=== PATIENT | male | born 1950 | race Caucasian/White ===

== ENCOUNTER → 2020-12-23 13:13 | Outpatient (REF) | payer MEDICARE, OTHER, SELFPAY | LOC: ANHLAB 13:13 | PROVIDERS: PCP Family Medicine Sports Medicine; Visit Provider Nurse Practitioner | DX: D22.5 Melanocytic nevi of trunk (principal) | CPT/HCPCS: 88305 ==

== ENCOUNTER 2023-07-06 10:25 | Outpatient (CLI) | payer MEDICARE, OTHER, SELFPAY ==
--- NOTE | 2023-07-06 11:30 | NEURO_ITS ---
Impression: # Non-diabetic complains of numbness of hands. 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 # Needle/EMG exam mildly neurogenic in left APB. # Ulnar to median cross innervation noted. # Clinical correlation recommended, Nerve Conduction Studies Anti Sensory Summary Table Stim Site NR Peak (ms) P-T Amp (?V) Site1 Site2 Delta-P (ms) Dist (cm) Travis (m/s) Left Median Anti Sensory (2-3nd Digit) Wrist 3.5 18.5 Wrist 2-3nd Digit 3.5 14.0 40 Wrist 3.8 23.9 Wrist 2-3nd Digit 3.5 14.0 40 Right Median Anti Sensory (2-3nd Digit) Wrist 4.0 16.1 Wrist 2-3nd Digit 4.0 14.0 35 Wrist 3.9 16.0 Wrist 2-3nd Digit 4.0 14.0 35 Left Radial Anti Sensory (Base 1st Digit) Wrist 2.3 16.4 Wrist Base 1st Digit 2.3 0.0 Right Radial Anti Sensory (Base 1st Digit) Wrist 2.3 4.6 Wrist Base 1st Digit 2.3 0.0 Left Ulnar Anti Sensory (5th Digit) Wrist 3.1 14.3 Wrist 5th Digit 3.1 14.0 45 Right Ulnar Anti Sensory (5th Digit) Wrist 3.0 16.2 Wrist 5th Digit 3.0 14.0 47 Motor Summary Table Stim Site NR Onset (ms) O-P Amp (mV) Site1 Site2 Delta-0 (ms) Dist (cm) Travis (m/s) Left Median Motor (Abd Poll Brev) Wrist 4.2 1.0 Elbow Wrist 7.7 33.0 43 Elbow 11.9 0.3 Right Median Motor (Abd Poll Brev) Wrist 3.8 1.7 Elbow Wrist 5.5 31.0 56 Elbow 9.3 2.9 Left Ulnar Motor (Abd Dig Minimi) Wrist 3.4 6.2 A Elbow Wrist 5.9 30.0 51 A Elbow 9.3 4.9 Right Ulnar Motor (Abd Dig Minimi) Wrist 3.5 4.0 A Elbow Wrist 5.9 32.0 54 A Elbow 9.4 2.5 F Wave Studies NR F-Lat (ms) L-R F-Lat (ms) Left Median (Mrkrs) (Abd Poll Brev) 35.20 1.17 Right Median (Mrkrs) (Abd Poll Brev) 36.37 1.17 Left Ulnar (Mrkrs) (Abd Dig Min) 34.27 2.05 Right Ulnar (Mrkrs) (Abd Dig Min) 36.32 2.05 EMG Side Muscle Nerve Root Ins Act Fibs Amp Dur Recrt Comment Right 1stDorInt Ulnar C8-T1 Nml Nml Nml Nml Nml Right Ext Indicis Radial (Post Int) C7-8 Nml Nml Nml Nml Nml Right Ext Digitorum Radial (Post Int) C7-8 Nml Nml Nml Nml Nml Right BrachioRad Radial C5-6 Nml Nml Nml Nml Nml Right PronatorTeres Median C6-7 Nml Nml Nml Nml Nml Right Abd Poll Brev Median C8-T1 Nml Nml Nml Nml Nml Left 1stDorInt Ulnar C8-T1 Nml Nml Nml Nml Nml Left Ext Indicis Radial (Post Int) C7-8 Nml Nml Nml Nml Nml Left Ext Digitorum Radial (Post Int) C7-8 Nml Nml Nml Nml Nml Left BrachioRad Radial C5-6 Nml Nml Nml Nml Nml Left PronatorTeres Median C6-7 Nml Nml Nml Nml Nml Left Abd Poll Brev Median C8-T1 Nml Nml Nml >12msl Reduces Right ABD Dig Min Ulnar C8-T1 Nml Nml Nml Nml Nml Right Biceps Musculocut C5-6 Nml Nml Nml Nml Nml Right Triceps Radial C6-7-8 Nml Nml Nml Nml Nml Right Deltoid Axillary C5-6 Nml Nml Nml Nml Nml Left ABD Dig Min Ulnar C8-T1 Nml Nml Nml Nml Nml Left Biceps Musculocut C5-6 Nml Nml Nml Nml Nml Left Triceps Radial C6-7-8 Nml Nml Nml Nml Nml Left Deltoid Axillary C5-6 Nml Nml Nml Nml Nml MTDD
== END 2023-07-06 10:26 | disposition home or self-care (01) ==
LOC: ANHNEURO 10:26
PROVIDERS: PCP Family Medicine Sports Medicine; Visit Provider Orthopaedic Surgery
DX: G62.9 Polyneuropathy, unspecified (principal)
CPT/HCPCS: 95886; 95911

== ENCOUNTER 2023-10-07 10:23 | Inpatient (IN) | payer MEDICARE, OTHER, SELFPAY ==
[2023-10-07] VITALS (25 sets, daily range): BP systolic 78–166; BP diastolic 33–87; PULSE 88–114; RESP 16–38; TEMP 36.3–36.7; O2SAT 91–100; BMI 33.3
--- NOTE | ~2023-10-07 | XR_ITS ---
EXAMINATION: XR chest 1V portable DATE: 10/07/2023 18:21 INDICATION: Shortness of breath. COVID-19. TECHNIQUE: A single frontal view of the chest was obtained. COMPARISON: Chest CT 10/07/2023 FINDINGS: There is no pneumonia, pleural effusion, or pneumothorax. The heart size is normal. IMPRESSION: 1. No acute cardiopulmonary disease. Reviewed, dictated and finalized at location E. RINARY ASSISTANT TECHNICIAN
--- NOTE | ~2023-10-07 | CT_ITS ---
EXAMINATION: CTA chest PE protocol DATE: 10/07/2023 12:11 HAND CLOTH CUTTER INDICATION: Shortness of breath. Evaluate for pulmonary embolism. TECHNIQUE: Computed tomographic angiography (CTA) of the chest was performed with 100 mL Omnipaque-35 0 intravenous contrast. The dose-length product was 979.15 mGy-cm. Maximum intensity projection 3D-re constructions of the aorta and other arteries were constructed by the technologist on a separate work station. Automated exposure control and iterative reconstruction technique were employed. COMPARISON: None. FINDINGS: Study is technically adequate without evidence for pulmonary embolism. There is atheroscler osis of the aorta and coronary arteries. There is a right hilar mass measuring 2.5 cm, suspicious for bronchogenic carcinoma. There is mediastinal and bilateral hilar lymphadenopathy. Small pleural effu sions. No endobronchial lesions. There is dependent atelectasis. There is lingular atelectasis. There is atherosclerosis of the aorta without aneurysm or dissection. Small pericardial effusion. Mild tho racic spondylosis. IMPRESSION: 1. No evidence for pulmonary embolism. 2: Right hilar mass measuring 2.5 cm, suspicious for bronchogenic carcinoma. Mediastinal and bilatera l hilar lymphadenopathy. Consider further evaluation with bronchoscopy. 3: Small pleural effusions with underlying compressive atelectasis Reviewed, dictated and finalized at location B. CLOTH CUTTER IMPRESSION: 1. No evidence for pulmonary embolism. 2: Right hilar mass measuring 2.5 cm, suspicious for bronchogenic carcinoma. Me diastinal and bilateral hilar lymphadenopathy. Consider further evaluation with bronchoscopy. 3: Small pleural effusions with underlying compressive atelectasis
--- NOTE | 2023-10-07 10:36 | ED.SOB ---
HPI - SOB/Dyspnea General Chief Complaint: Shortness of Breath/Dyspnea Stated Complaint: dyspnea, covid+ Time Seen by Provider: 10/07/23 10:26 Patient is a 73-year-old male who is known to be COVID positive that presents ER with shortness of breath. He began feeling ill 10 days ago. One week ago he tested positive for COVID. He took packs of it without feeling improvement. He continues to feel progressively more weak. He went to an ER in [facility] where he was given Keflex for possible UTI. He feels like he is being continuing to become more fatigued and weak. He has no chest pain chest pressure. Found to be in atrial fibrillation today and denies history of previous AFib. Reports he does have a valve issue that he follows with a epic prelude analyst at [facility] to but does not know more information. Patient initially hypotensive and fluids started. Related Data Home Medications Medication Instructions Recorded Confirmed celecoxib 200 mg capsule 200 mg PO DAILY 10/07/23 10/07/23 duloxetine 60 mg capsule,delayed 60 mg PO DAILY 10/07/23 10/07/23 release (Cymbalta) losartan 100 mg tablet 100 mg PO DAILY 10/07/23 10/07/23 nifedipine 30 mg tablet,extended 30 mg PO QAM 10/07/23 10/07/23 release nifedipine 60 mg tablet,extended 60 mg PO QHS 10/07/23 10/07/23 release omeprazole 40 mg capsule,delayed 40 mg BID 10/07/23 10/07/23 release rosuvastatin 5 mg tablet 5 mg PO DAILY 10/07/23 10/07/23 Allergies Allergy/AdvReac Type Severity Reaction Status Date / Time indomethacin Allergy Gastrointestinal Verified 10/07/23 10:39 Upset Review of Systems Review of Systems: All systems reviewed & are unremarkable except as noted in HPI and below Constitutional: Constitutional: Reports fatigue and Reports weakness Cardiovascular: Cardiovascular: Denies chest pain, Denies rapid heart rate and Denies radiating jaw, neck or arm pain Respiratory: Respiratory: Reports cough, Reports dyspnea and Denies wheezing Gastrointestinal: Gastrointestinal: Reports no additional gastrointestinal complaints Genitourinary: Genitourinary: Reports no additional male genitourinary complaints Neurologic: Reports system reviewed and no additional complaints, except as documented [facility] Past Medical History Medical History (Updated 10/07/23 @ 19:30 by Silviano Finney MD) Hyperlipidemia Hypertension Obesity Obstructive sleep apnea Prediabetes Prostate cancer Surgical History Surgical History History of appendectomy History of hernia repair History of prostate surgery History of tonsillectomy and adenoidectomy Family History Family History Other Diabetes mellitus Family history of kidney disease Social History Social History (Updated 10/07/23 @ 14:46 by Winsome Jarrell PA-C) Social History: Surrogate medical decision maker: Binta Molina (spouse) or Estella (daughter) Michele. Code status: Full code. Smoking status: Never smoker Second hand tobacco smoke exposure: Yes (father and brother smoked.) Alcohol intake: former Substance use: never Substance use type: does not use Do You Feel Safe in your Home?: Yes Lack of Transportation: No Lack of Food: Never True Current Housing: I Have Housing Concerned About Future Housing: YES Difficulty Paying Gas/Electric Bills: No Difficulty Paying for Meds: No Currently Unemployed: No Education: High School Diploma/GED Difficulty w/ Childcare or Family Care: No Living arrangements: with family Additional living arrangements comments: Lives with spouse in [place]. Occupation/Education: occupation Additional occupation/education comments: [employer]. Spiritual care concerns: No Exam Narrative: GENERAL: Fatigued-appearing, obese, and in no acute distress. HEAD: Normocephalic, atraumatic. ENT: Mucous
[2023-10-07] MEDS: SODIUM CHLORIDE 0.9% IV 1,000 ML 999 ML (10:57)
[2023-10-07 11:23] LABS: Basophils Percent Auto 0.3 % (0.2-1.2); Eosinophils Absolute Auto 0.1 K/mm3 (0-0.3); Eosinophils Percent Auto 0.5 % (0-4.4); Hemoglobin 11.9 g/dL (14.0-18.0); Immature Granulocyte Absolute 0.03 K/mm3 (0.00-0.031); Immature Granulocyte Percent A 0.3 % (0-0.5); Lymphocytes Absolute Auto 2.51 K/mm3 (0.9-3.2); Lymphocytes Percent Auto 23.5 % (18.3-44.2); Mean Corpuscular HGB Conc 33.1 g/dl (32-36); Mean Corpuscular Hemoglobin 29.9 pg (26-34); Mean Corpuscular Volume 90.5 fl (80-100); Mean Platelet Volume 11.3 fl (7.4-10.4); Monocytes Absolute Auto 1.1 K/mm3 (0.1-0.6); Monocytes Percent Auto 10.2 % (2.6-8.5); Neutrophils Percent Auto 65.2 % (45.5-73.1); Platelet Count Result 216 k/mm3 (150-375); Red Blood Count 3.98 M/mm3 (4.6-6.20); White Blood Count 10.7 K/mm3 (4.5-10.0)
[2023-10-07 11:34] LABS: Partial Thromboplastin Time 25.7 SECONDS (22.3-36.8); Prothrombin Time 13.7 Seconds (11.1-14.7)
[2023-10-07 11:35] LABS: Alanine Aminotransferase 17 U/L (6-50); Albumin Level 3.1 g/dL (3.5-5.1); Alkaline Phosphatase 49 U/L (38-126); Anion Gap 10 mmol/L (8-16); Aspartate Amino Transferase 24 U/L (17-59); Bilirubin,Total 0.5 mg/dL (0.2-1.3); Blood Urea Nitrogen 42 mg/dL (9-20); Calcium 8.1 mg/dL (8.4-10.2); Carbon Dioxide 18 mmol/L (22-30); Chloride 107 mmol/L (98-107); Estimated Glomerular Filt Rate > 60; Glucose 130 mg/dL (65-110); Potassium 3.6 mmol/L (3.4-5.0); Sodium 135 mmol/L (137-145)
[2023-10-07] MEDS: SODIUM CHLORIDE 0.9% IV 1,000 ML 999 ML IV CONT (11:35)
[2023-10-07 11:36] LABS: Lactic Acid Reflex 2.9 mmol/L (0.7-2.0)
[2023-10-07 11:47] LABS: Troponin I 0.012 ng/mL (0.000-0.034)
[2023-10-07 12:43] LABS: Appearance Urine Clear (Clear); Bilirubin Urine Negative (Negative); Blood Urine Negative (Negative); Color Urine Yellow (Yellow); Glucose Urine UA Negative (Negative); Ketones Urine Negative (Negative); Leukocyte Esterase Ur Negative LEU/UL (Negative); Nitrate Urine Negative (Negative); Protein Urine Negative (Negative); pH Urine 6.5 (5.0-9.0)
[2023-10-07 12:46] LABS: Specific Grav Ur 1.069 (1.001-1.035)
[2023-10-07 12:47] LABS: Add Urine Microscopic? NO
[2023-10-07 14:21] LABS: Reflex Lactic Acid Yes or No Add Lactic
--- NOTE | 2023-10-07 14:33 | PM.IMHP ---
H&P: HPI History of Present Illness Date/Time: 10/07/23 15:00 Chief Complaint: Shortness of breath and weakness. Narrative: This is a 73-year-old male with obstructive sleep apnea on CPAP, hypertension, hyperlipidemia, prediabetes, kidney stones, prostate cancer status post prostatectomy, gastroesophageal reflux disease, and pulmonary nodule presented to the emergency department for evaluation of shortness of breath and weakness. The patient provides the following history. He has not been feeling well since last and tested positive for COVID the following day. He was at a several days before that and was likely exposed there. He was started on Paxlovid but is not feeling any better. Symptoms include sneezing, rhinorrhea, nonproductive cough, sinus congestion, shortness of breath, headache, sore throat, decreased appetite, and subjective fever. He has been taking Mucinex at home for his cough though that does not seem to help much. The cough is not productive. His appetite has been poor and he reports a decrease in urine output as well as dark-colored urine. He denies syncope, near syncope, chest pain, pleuritic pain, palpitations, vomiting, diarrhea, and dysuria. In the ED: Blood pressure was as low as 78/55. He received a 2 L normal saline bolus and blood pressures have since stabilized. He has been afebrile since arrival. Heart rate has been in the upper 90s to low 100s and he is in atrial fibrillation which is a new diagnosis for him. Labs were significant for WBC count of 10.7, hemoglobin 11.9, sodium 135, BUN 42, creatinine 1.00, lactic acid 2.9, troponin 0.012. Urine showed high specific gravity but was otherwise unremarkable. He was confirmed positive for SARS-CoV-2 by PCR. Chest x-ray showed no acute cardiopulmonary disease. Chest CTA showed no evidence of pulmonary embolism but did note small pleural effusions and a right hilar mass measuring 2.5 cm with mediastinal bilateral hilar lymphadenopathy. With further questioning he had a pulmonary nodule which was being followed many years ago which had always been stable. Review of Systems Review of Systems: Twelve systems were reviewed and are negative except for as per HPI. [facility] Past Medical History Medical History (Updated 10/07/23 @ 21:57 by Winsome Jarrell PA-C) Hyperlipidemia Hypertension Obesity Obstructive sleep apnea Prediabetes Prostate cancer Surgical History Surgical History (Updated 10/07/23 @ 21:54 by Winsome Jarrell PA-C) History of appendectomy History of hernia repair History of prostatectomy History of tonsillectomy and adenoidectomy Family History Family History Other Diabetes mellitus Family history of kidney disease Social History Social History Social History: Surrogate medical decision maker: Binta Molina (spouse) or Estella (daughter) Michele. Code status: Full code. Smoking status: Never smoker Second hand tobacco smoke exposure: Yes (father and brother smoked.) Alcohol intake: former Substance use: never Substance use type: does not use Do You Feel Safe in your Home?: Yes Lack of Transportation: No Lack of Food: Never True Current Housing: I Have Housing Concerned About Future Housing: YES Difficulty Paying Gas/Electric Bills: No Difficulty Paying for Meds: No Currently Unemployed: No Education: High School Diploma/GED Difficulty w/ Childcare or Family Care: No Living arrangements: with family Additional living arrangements comments: Lives with spouse in [place]. Occupation/Education: occupation Additional occupation/education comments: [employer]. Spiritual care concerns: No Meds Home Medications and Allergies Home Medications Medication Instructions Recorded Confirmed Type celecoxib 200 mg capsule 200 mg PO DAILY 10/07/23 10/07/23 History duloxetine
[2023-10-07] MEDS: ENOXAPARIN 120 MG/0.8 ML SYRINGE 122 MG SUB-Q (14:45)
--- NOTE | 2023-10-07 14:59 | ECG_ITS ---
Measurements Intervals Wilber Rate: 104 P: MI: 0 QRS: 14 QRSD: 78 T: 214 QT: 346 QTc: 457 Interpretive Statements ATRIAL FIBRILLATION WITH RAPID VENTRICULAR RESPONSE LOW QRS VOLTAGE- DIFFUSE LEADS CONSIDER ANTERIOR INFARCT, AGE INDETERMINATE BORDERLINE ST-T WAVE ABNORMALITY- INF/HIGH LAT LEADS BASELINE ARTIFACT- I, II, AVR, AVL, AVF, V1-V6 ABNORMAL ECG NO PREVIOUS ECG AVAILABLE FOR COMPARISON Electronically Signed On 10-07-2023 15:24:19 ROTARY DRYER OPERATOR by Pritesh Euceda D.O.
--- NOTE | 2023-10-07 15:24 | ADMIMU ---
This patient, Reyes Bautista, was admitted to IMU status, and placed in IMU Room 212-01. Patient/family oriented to hospital policies and general routines including ID bracelet, bed and alarms, visiting hours, pain management, procedures, bathroom and other care routines, personal items, smoking policy, room service/diet, and visiting hours. Valuables list has been completed. Information on how to activate the Rapid Response Team has been discussed. Patient/Family are encouraged to report perceived risks to care and to ask questions if they do not understand what they are told or what they should do.
[2023-10-07 15:38] LABS: Influenza A QL RT-PCR Negative (Negative); Influenza B QL RT-PCR Negative (Negative); RSV RNA, RT-PCR Negative (Negative); SARS-CoV-2 RNA PCR Positive (Negative)
--- NOTE | 2023-10-07 15:42 | ECHO_ITS ---
Patient Info Name: Reyes Bautista Age: 73 years : 1950 Gender: Male Ht: 76 in Wt: 281 lbs BSA: 2.65 m2 HR: 108 bpm BP: 106 / 46 mmHg Heart Rhythm: Atrial Fibrillation Technical Quality: Fair Exam Date: 10/07/2023 4:12 PM Exam Location: Echo Lab Exam Room: [facility] Patient Status: Outpatient Admit Date: 10/07/2023 Staff Ordering Physician: Winsome Jarrell PA-C Courier: Nilsa Abebe RDCS Attending Provider: Ray Torre MD Referring Physician: Wesly RODRIGUES; Exam Type: CA echo doppler color flow Study Info Indications - new afib covid pos Complete two-dimensional, color flow and Doppler transthoracic echocardiogram is performed. Summary 1. Complete two-dimensional, color flow and Doppler transthoracic echocardiogram is performed. 2. Left ventricular chamber dimension is normal. 3. Left ventricular systolic function is normal, estimated at 65-70%. 4. The left ventricular diastolic function is normal. 5. E/e' 9 is minimally elevated. 6. Atrial fibrillation. 7. Left atrial chamber dimension is mildly enlarged. 8. Right atrial chamber dimension is mildly enlarged. 9. There is moderate aortic valve sclerosis. 10. The mitral valve has mildly calcified annulus. 11. No pulmonary hypertension, estimated pulmonary arterial systolic pressure is 38 mmHg. 12. There is trivial pericardial effusion. Left Ventricle E/e' 9 is minimally elevated. Atrial fibrillation. Left ventricular chamber dimension is normal. Left ventricular systolic function is normal, estimated at 65-70%. The left ventricular diastolic function is normal. Right Ventricle Right ventricular chamber dimension is normal. Right ventricular systolic function is normal. Left Atria Left atrial chamber dimension is mildly enlarged. Right Atria Right atrial chamber dimension is mildly enlarged. Aortic Valve The aortic valve is trileaflet. There is moderate aortic valve sclerosis. There is no aortic valve stenosis. There is no aortic valve regurgitation. Pulmonic Valve There is no pulmonic regurgitation. Mitral Valve The mitral valve has mildly calcified annulus. There is no mitral valve stenosis. There is no mitral valve regurgitation. Tricuspid Valve There is no tricuspid valve regurgitation. No pulmonary hypertension, estimated pulmonary arterial systolic pressure is 38 mmHg. Pericardium/Pleural There is trivial pericardial effusion. Inferior Vena Cava Normal inferior vena cava with >50% collapse upon inspiration consistent with normal right atrial pressure, 5 mmHg. Aorta The aortic root size at the sinus of Valsalva is normal. Left Ventricular Outflow Tract Name Value Normal LVOT 2D LVOT Diameter 2.1 cm LVOT Doppler LVOT Peak Gradient 4 mmHg LVOT Mean Gradient 3 mmHg LVOT VTI 20 cm LVOT VTI/AV VTI Ratio 0.6 LVOT Stroke Volume 67 ml LVOT CO 17.4 l/min LVOT CI 6.6 l/min/m2 Pulmonic Valve Name
--- NOTE | 2023-10-07 16:43 | PM.CNPUL ---
Assessment and Plan Assessment and plan (1) Mass of right lung: Code(s): R91.8 - Other nonspecific abnormal finding of lung field Status: Acute Assessment and Plan: Patient with the 2.5 cm right hilar mass and bilateral hilar and mediastinal lymphadenopathy. This is in the setting of an acute COVID infection. He is a never smoker was exposed to secondhand smoke from his father. Plan: Patient should be treated for acute COVID and after he was made a complete recovery (anticipated 1-3 weeks) will repeat CT scan to reassess mass and lymphadenopathy to determine the best approach for a biopsy (standard bronchoscopy or referral for a bronchoscopy with EBUS). If the patient is clinically ready to be discharged over the weekend, I have given him our business card and told him to call clinic on 10/10 to make an outpatient appointment in 2-3 weeks. Will follow with you. Inpatient Pulmonary consultative services will resume on 10/10/2023. Call with questions. (2) ROSAURA (obstructive sleep apnea): Code(s): G47.33 - Obstructive sleep apnea (adult) (pediatric) Status: Acute Assessment and Plan: The patient tells me he was diagnosed with obstructive sleep apnea 15-20 years ago and he wears a CPAP 15 every night with a good clinical benefit. Plan: I have told the patient to have his family bring in his CPAP mask and machine. If he can bring in his CPAP mask and machine tonight he should wear her his own apparatus. Otherwise I will write for auto Pap 10 to 20. (3) COVID: Code(s): U07.1 - COVID-19 Status: Acute Assessment and Plan: Patient tested COVID positive on 09/30 and repeat testing today in the emergency room is COVID positive. Room air saturations were listed as 91 in the emergency room and currently he is in no respiratory distress at rest on 2 L with saturations 100%. CT scan does not show diffuse ground-glass or focal infiltrates. He was started on remdesivir. Plan: Agree with remdesivir only for now. Would attempt to wean FiO2 to off with a goal saturation 90-94%. If patient's oxygen can be weaned off recommend discontinuation of remdesivir. If patient has worsening oxygen requirements would add dexamethasone 6 mg IV Qday. History of Present Illness History of Present Illness Consult date: 10/07/23 Chief complaint: Afib, COVID, Hilar Mass Narrative: 10/07/2023: This is a new pulmonary consult for right hilar mass. 73-year-old with a history of hypertension, hyperlipidemia, depression, GERD, obstructive sleep apnea on CPAP 15 through IV respiratory care for 15-20 years. Patient was in his usual state of health and at baseline he can walk at least 3 blocks and then notice E has to breathe harder. Over the last year his dyspnea on exertion has worsened from 1/4 mi to 3 blocks. He has no weight loss over this time. Patient has no chronic respiratory illnesses. He denies asthma, COPD oral interstitial lung disease. He is a never smoker. He was exposed to secondhand smoke from his father but none since he moved out of his father's house. 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 Patient began feeling sick on 09/30/2023 with sneezing, cough, shortness of breath, fever, minimal phlegm production and a little bit of chest pain when he took a deep breath. Patient tested positive for COVID at his physician's office and was prescribed Paxil of id. Over the next 5 days he did not improve with Paxil of id and on 10/05/2023 he became weaker and went to the ER at [facility] where he says they gave him some IV fluids but did no diagnostic testing and sent him home. He continued to feel weak and was unable to eat or drink and presented to the hospital today. In the emergency room his room air saturations were 91% and he was placed on 2 L nasal cannula. He was afebrile with a heart rate
[2023-10-07] MEDS: REMDESIVIR 200 MG/NS 250 ML 200 MG/250 ML BAG 250 MG IVPB (16:45)
[2023-10-07] MEDS: guaiFENesin 600 MG/DEXTROMETHORPHAN 30 MG SR TAB 12 HR 1 TAB PO (22:42)
[2023-10-07] MEDS: PANTOPRAZOLE 40 MG TABLET PO (22:42)
[2023-10-08] VITALS (16 sets, daily range): BP systolic 102–137; BP diastolic 59–66; PULSE 89–114; RESP 16–24; TEMP 36.6–36.8; O2SAT 93–100
[2023-10-08 04:55] LABS: Hematocrit 35.5 % (42.0-52.0); Hemoglobin 11.9 g/dL (14.0-18.0); Mean Corpuscular HGB Conc 33.5 g/dl (32-36); Mean Corpuscular Hemoglobin 30.4 pg (26-34); Mean Corpuscular Volume 90.6 fl (80-100); Mean Platelet Volume 11.5 fl (7.4-10.4); Platelet Count Result 216 k/mm3 (150-375); Red Blood Count 3.92 M/mm3 (4.6-6.20); Red Cell Distribution Width 13.1 % (11.5-14.5); White Blood Count 9.7 K/mm3 (4.5-10.0)
[2023-10-08 05:15] LABS: Anion Gap 6 mmol/L (8-16); Blood Urea Nitrogen 31 mg/dL (9-20); CRP 0.6 mg/dL (<1.0); Calcium 8.1 mg/dL (8.4-10.2); Carbon Dioxide 23 mmol/L (22-30); Chloride 108 mmol/L (98-107); Estimated CRCL calculation 2 ml/min; Estimated Glomerular Filt Rate > 60; Glucose 100 mg/dL (65-110); Lactate Dehydrogenase 133 U/L (120-246); Potassium 3.8 mmol/L (3.4-5.0); Sodium 137 mmol/L (137-145)
[2023-10-08] MEDS: ENOXAPARIN 80 MG/0.8 ML SYRINGE SUB-Q (05:43)
[2023-10-08] MEDS: ENOXAPARIN 60 MG/0.6 ML SYRINGE 45 MG SUB-Q (05:43)
[2023-10-08] MEDS: guaiFENesin 600 MG/DEXTROMETHORPHAN 30 MG SR TAB 12 HR 1 TAB PO ×2 (11:12→22:13)
[2023-10-08] MEDS: DULoxetine HCL 60 MG CAPSULE.DR PO (11:12)
[2023-10-08] MEDS: CELECOXIB 200 MG CAPSULE PO (11:12)
[2023-10-08] MEDS: PANTOPRAZOLE 40 MG TABLET PO ×2 (11:12→22:14)
[2023-10-08] MEDS: METOPROLOL TARTRATE 12.5 MG TABLET PO ×2 (13:32→22:13)
--- NOTE | 2023-10-08 14:25 | PM.IMPN ---
Progress Note: A&P Assessment and Plan (1) New onset atrial fibrillation: Code(s): I48.91 - Unspecified atrial fibrillation Status: Acute (2) Hypotension: Code(s): I95.9 - Hypotension, unspecified Status: Acute (3) Mass of right lung: Code(s): R91.8 - Other nonspecific abnormal finding of lung field Status: Acute (4) Dehydration: Code(s): E86.0 - Dehydration Status: Acute (5) COVID: Code(s): U07.1 - COVID-19 Status: Acute (6) Hypertension: Code(s): I10 - Essential (primary) hypertension Status: Acute (7) Hyperlipidemia: Code(s): E78.5 - Hyperlipidemia, unspecified Status: Acute (8) Obstructive sleep apnea on CPAP: Code(s): G47.33 - Obstructive sleep apnea (adult) (pediatric) Status: Acute Plan 73-year-old male who presented with shortness of breath feeling ill since 10 days. One week ago he tested positive for COVID. Took pack Slo-bid without improvement. Feeling more weak. Went to ER in [place] no eye given Keflex for UTI. No chest pain was noted to be in atrial fibrillation today no prior history of AFib he present to the ER for further evaluation. Was mildly tachycardic with AFib rhythm blood pressure initially was 6-year-old 54 received IV fluid bolus and has been stabilized since then. Lactic acid was elevated 2.9 rest of the labs unremarkable troponin negative UA negative COVID positive CT was performed which ruled out PE but showed right hilar mass measuring 2.5 cm suspicious for bronchogenic carcinoma mediastinal and bilateral hilar lymphadenopathy consider bronchoscopy small pleural effusion with underlying compressive atelectasis noted was admitted for further treatment. Pulmonary was consulted in contemplating bronchoscopic evaluation await his further recommendation. For his atrial fibrillation and high chads Vasc score is been started on Lovenox 1 milligram/kilogram b.i.d. dosing. Echo 10/07/2023: EF 65-70% no significant valvular abnormality diastolic dysfunction. Repeat CT chest after recovery from COVID is planned to determine the best approach with biopsy marrow follow-up with Pulmonary regarding this. Since no plans for biopsy will start him on Xarelto and stop his Lovenox. Due to associated hypoxia with COVID positive been started on remdesivir. Oxygenation is fairly stable/improved today. Will continue current plan for remdesivir History of ROSAURA continue CPAP at night Subjective Date/time seen: 10/08/23 14:25 Interval history: 73-year-old male who presented with shortness of breath feeling ill since 10 days. One week ago he tested positive for COVID. Took pack Slo-bid without improvement. Feeling more weak. Went to ER in [place] no eye given Keflex for UTI. No chest pain was noted to be in atrial fibrillation today no prior history of AFib he present to the ER for further evaluation. Was mildly tachycardic with AFib rhythm blood pressure initially was 6-year-old 54 received IV fluid bolus and has been stabilized since then. Lactic acid was elevated 2.9 rest of the labs unremarkable troponin negative UA negative COVID positive CT was performed which ruled out PE but showed right hilar mass measuring 2.5 cm suspicious for bronchogenic carcinoma mediastinal and bilateral hilar lymphadenopathy consider bronchoscopy small pleural effusion with underlying compressive atelectasis noted was admitted for further treatment. Pulmonary was consulted in contemplating bronchoscopic evaluation await his further recommendation. For his atrial fibrillation and high chads Vasc score is been started on Lovenox 1 milligram/kilogram b.i.d. dosing. Echo 10/07/2023: EF 65-70% no significant valvular abnormality diastolic dysfunction. Repeat CT chest after recovery from COVID is planned to determine the best approach with biopsy marrow follow-up with Pulmonary regarding this. Since no plans for biopsy will start him on Xarelt
--- NOTE | 2023-10-08 16:47 | PM.CNCAR ---
Assessment and Plan Assessment and plan (1) New onset atrial fibrillation: Code(s): I48.91 - Unspecified atrial fibrillation Status: Acute Assessment and Plan: New diagnosis atrial fibrillation with intermittent RVR reasonably controlled at presentation. Patient was unaware denies palpitations. No prior known history of AFib, stroke. No recent falls or bleeding complications. Discussed atrial fibrillation pathophysiology, management strategy and increased risk for embolic stroke over time. Discussed management with aspirin versus systemic anticoagulation. CHADS2 Vasc score 2, systemic anticoagulation advised. Begin anticoagulation when able in light of pulmonary mass with Xarelto 20 mg daily. Will initiate metoprolol tartrate 12.5 mg twice daily for improved heart rate control. Monitor for bradycardia, BP tolerance. Patient will require outpatient follow-up and management. Will not attempt cardioversion at this time as patient is asymptomatic, hemodynamically stable and given his acute illness and COVID diagnosis unlikely to be successful and/or maintain sinus rhythm at this juncture. As durations AFib is unknown if cardioversion were attempted ESTER guided would be required. As such medical management, heart rate control strategy best option at this time with recommendation to follow. Avoid concomitant NSAID therapy with systemic anticoagulation. If able to discontinue Celebrex I would recommend avoidance of possible. Echocardiogram reviewed mild left atrial enlargement no significant valve pathology co preserved LV systolic function. (2) COVID: Code(s): U07.1 - COVID-19 Status: Acute Assessment and Plan: Acute COVID infection multiple systemic symptoms started on remdesivir. Continue current supportive care, isolation, O2 supplementation, bronchodilators as appropriate. Management per primary service. Wean O2 as tolerated. (3) Hypertension: Code(s): I10 - Essential (primary) hypertension Status: Acute Assessment and Plan: BP stable at this time although patient was hypotensive initially. Will hold off on additional antihypertensive therapy at present as patient was on nifedipine 90 mg daily and losartan 100 mg daily as an outpatient. (4) Hilar mass: Code(s): R91.8 - Other nonspecific abnormal finding of lung field Status: Acute Assessment and Plan: Appreciate pulmonology involvement and recommendations. Further workup and repeat imaging in the near future with discussion regarding biopsy options. (5) Obstructive sleep apnea on CPAP: Code(s): G47.33 - Obstructive sleep apnea (adult) (pediatric) Status: Acute Assessment and Plan: Continue compliance with CPAP for treatment of ROSAURA. (6) Hyperlipidemia: Code(s): E78.5 - Hyperlipidemia, unspecified Status: Acute Assessment and Plan: Continue rosuvastatin 5 mg daily. History of Present Illness History of Present Illness Consult date/time: Date of service: 10/08/23 16:47 Requesting physician: Tyrone Mcelroy MD Consult reason: atrial fibrillation Reason For Visit: Afib, COVID, Hilar Mass Narrative: Patient is a 73-year-old male with past medical history significant for ROSAURA on CPAP, hypertension, hyperlipidemia, GERD present the emergency department with complaints of weakness and shortness of breath. Patient had not been feeling well since last where he tested positive for COVID reveals he was likely exposed having attended a several days prior. He was started on Paxlovid as an outpatient without improvement and subsequent present to the ER for evaluation. He complained of shortness of breath, fever, sore throat, cough which is nonproductive well as decreased appetite. States his urine was dark but denies near-syncope, syncope or falls. He had had no specific chest pain palpitations. He was noted be hypotensive in the ER for which he received 2
[2023-10-08] MEDS: RIVAROXABAN 20 MG TABLET PO (16:50)
--- NOTE | 2023-10-08 17:49 | PC.NURSE ---
This patient, Reyes Bautista, was transferred to [facility] on 10/08/23 at 1749. Personal belongings sent with patient. Report given to Nuvia JARAMILLO. Appropriate documentation sent with patient.
--- NOTE | 2023-10-08 18:28 | PC.NURSE ---
This patient, Reyes Bautista, was received from IMU on 10/08/23 at 1814. Report received from CLINT Recio. Patient/family oriented to unit policies and routines
[2023-10-08] MEDS: REMDESIVIR 100 MG/NS 250 ML 100 MG/250 ML BAG 250 MG IVPB (22:32)
[2023-10-09] VITALS (15 sets, daily range): BP systolic 103–127; BP diastolic 61–68; PULSE 82–105; RESP 16–18; TEMP 36.4–37; O2SAT 93–100
[2023-10-09 06:01] LABS: Alanine Aminotransferase 19 U/L (6-50); Albumin Level 3.1 g/dL (3.5-5.1); Alkaline Phosphatase 49 U/L (38-126); Aspartate Amino Transferase 25 U/L (17-59); Bilirubin,Total 0.3 mg/dL (0.2-1.3)
[2023-10-09 06:33] LABS: INR 1.6; Prothrombin Time 20.2 Seconds (11.1-14.7)
[2023-10-09] MEDS: PANTOPRAZOLE 40 MG TABLET PO ×2 (08:54→20:48)
[2023-10-09] MEDS: CELECOXIB 200 MG CAPSULE PO (08:54)
[2023-10-09] MEDS: DULoxetine HCL 60 MG CAPSULE.DR PO (08:54)
[2023-10-09] MEDS: METOPROLOL TARTRATE 12.5 MG TABLET PO ×2 (08:54→20:49)
[2023-10-09] MEDS: guaiFENesin 600 MG/DEXTROMETHORPHAN 30 MG SR TAB 12 HR 1 TAB PO ×2 (08:54→20:49)
--- NOTE | 2023-10-09 13:10 | P.PNIM_ITS ---
Progress Note: A&P Assessment and Plan (1) New onset atrial fibrillation: Code(s): I48.91 - Unspecified atrial fibrillation Status: Acute (2) Hypotension: Code(s): I95.9 - Hypotension, unspecified Status: Acute (3) Mass of right lung: Code(s): R91.8 - Other nonspecific abnormal finding of lung field Status: Acute (4) Dehydration: Code(s): E86.0 - Dehydration Status: Acute (5) COVID: Code(s): U07.1 - COVID-19 Status: Acute (6) Hypertension: Code(s): I10 - Essential (primary) hypertension Status: Acute (7) Hyperlipidemia: Code(s): E78.5 - Hyperlipidemia, unspecified Status: Acute (8) Obstructive sleep apnea on CPAP: Code(s): G47.33 - Obstructive sleep apnea (adult) (pediatric) Status: Acute Plan 73-year-old male who presented with shortness of breath feeling ill since 10 days. One week ago he tested positive for COVID. Took pack Slo-bid without improvement. Feeling more weak. Went to ER in [place] no eye given Keflex for UTI. No chest pain was noted to be in atrial fibrillation today no prior history of AFib he present to the ER for further evaluation. Was mildly tachycardic with AFib rhythm blood pressure initially was 76/55 received IV fluid bolus and has been stabilized since then. Lactic acid was elevated 2.9 rest of the labs unremarkable troponin negative UA negative COVID positive CT was performed which ruled out PE but showed right hilar mass measuring 2.5 cm suspicious for bronchogenic carcinoma mediastinal and bilateral hilar lymphadenopathy consider bronchoscopy small pleural effusion with underlying compressive atelectasis noted was admitted for further treatment. Pulmonary was consulted in contemplating bronchoscopic evaluation await his further recommendation. For his atrial fibrillation and high chads Vasc score is been started on Lovenox 1 milligram/kilogram b.i.d. dosing. Echo 10/07/2023: EF 65- 70% no significant valvular abnormality diastolic dysfunction. Repeat CT chest after recovery from COVID is planned to determine the best approach with biopsy marrow follow-up with Pulmonary regarding this. Since no plans for biopsy will start him on Xarelto and stop his Lovenox. Due to associated hypoxia with COVID positive been started on remdesivir. Oxygenation is fairly stable/improved. Will continue current plan for remdesivir History of ROSAURA continue CPAP at night Continue to taper off oxygen On metoprolol for AFib rhythm Subjective Date/time seen: 10/09/23 13:10 Interval history: 73-year-old male who presented with shortness of breath feeling ill since 10 days. One week ago he tested positive for COVID. Took pack Slo-bid without improvement. Feeling more weak. Went to ER in [place] no eye given Keflex for UTI. No chest pain was noted to be in atrial fibrillation today no prior history of AFib he present to the ER for further evaluation. Was mildly tachycardic with AFib rhythm blood pressure initially was 6-year-old 54 received IV fluid bolus and has been stabilized since then. Lactic acid was elevated 2.9 rest of the labs unremarkable troponin negative UA negative COVID positive CT was performed which ruled out PE but showed right hilar mass measuring 2.5 cm suspicious for bronchogenic carcinoma mediastinal and bilateral hilar lymphadenopathy consider bronchoscopy small pleural effusion with underlying compressive atelectasis noted was admitted for further treatment. Pulmonary was consulted in contemplating bronchoscopic evaluation await his further recommendation. For his atrial fibrillation and high chads Vasc score is been
[2023-10-09] MEDS: RIVAROXABAN 20 MG TABLET PO (16:19)
[2023-10-09] MEDS: REMDESIVIR 100 MG/NS 250 ML 100 MG/250 ML BAG 250 MG IVPB (21:25)
[2023-10-10] VITALS (11 sets, daily range): BP systolic 113–124; BP diastolic 62–70; PULSE 79–105; RESP 17–20; TEMP 36.6–36.8; O2SAT 95–100
[2023-10-10 06:10] LABS: Basophils Absolute Auto 0.1 K/mm3 (0.0-0.1); Basophils Percent Auto 0.5 % (0.2-1.2); Eosinophils Absolute Auto 0.1 K/mm3 (0-0.3); Eosinophils Percent Auto 1.2 % (0-4.4); Hematocrit 36.2 % (42.0-52.0); Hemoglobin 11.9 g/dL (14.0-18.0); Immature Granulocyte Absolute 0.06 K/mm3 (0.00-0.031); Immature Granulocyte Percent A 0.7 % (0-0.5); Lymphocytes Percent Auto 26.2 % (18.3-44.2); Mean Corpuscular HGB Conc 32.9 g/dl (32-36); Mean Corpuscular Hemoglobin 30.1 pg (26-34); Mean Corpuscular Volume 91.6 fl (80-100); Mean Platelet Volume 11.6 fl (7.4-10.4); Monocytes Percent Auto 10.4 % (2.6-8.5); Neutrophils Absolute Auto 5.6 K/mm3 (1.3-6.7); Platelet Count Result 210 k/mm3 (150-375); Red Blood Count 3.95 M/mm3 (4.6-6.20); Red Cell Distribution Width 13.2 % (11.5-14.5); White Blood Count 9.2 K/mm3 (4.5-10.0)
[2023-10-10 06:41] LABS: Alanine Aminotransferase 31 U/L (6-50); Albumin Level 3.1 g/dL (3.5-5.1); Alkaline Phosphatase 54 U/L (38-126); Anion Gap 8 mmol/L (8-16); Aspartate Amino Transferase 40 U/L (17-59); Bilirubin,Total 0.4 mg/dL (0.2-1.3); Blood Urea Nitrogen 21 mg/dL (9-20); Calcium 8.4 mg/dL (8.4-10.2); Carbon Dioxide 22 mmol/L (22-30); Chloride 106 mmol/L (98-107); Estimated CRCL calculation 107 ml/min; Estimated Glomerular Filt Rate > 60; Glucose 108 mg/dL (65-110); Magnesium 1.9 mg/dL (1.6-2.3); Potassium 3.9 mmol/L (3.4-5.0); Sodium 136 mmol/L (137-145)
[2023-10-10] MEDS: METOPROLOL TARTRATE 12.5 MG TABLET PO ×2 (08:46→20:35)
[2023-10-10] MEDS: DULoxetine HCL 60 MG CAPSULE.DR PO (08:46)
[2023-10-10] MEDS: guaiFENesin 600 MG/DEXTROMETHORPHAN 30 MG SR TAB 12 HR 1 TAB PO ×2 (08:46→20:35)
[2023-10-10] MEDS: PANTOPRAZOLE 40 MG TABLET PO ×2 (08:46→20:36)
[2023-10-10] MEDS: CELECOXIB 200 MG CAPSULE PO (08:46)
[2023-10-10] MEDS: ROSUVASTATIN 5 MG TABLET PO (08:46)
--- NOTE | 2023-10-10 12:21 | PM.PNPUL ---
Progress Note: A&P Assessment and Plan (1) Mass of right lung: Code(s): R91.8 - Other nonspecific abnormal finding of lung field Status: Acute Assessment and Plan: Patient with the 2.5 cm right hilar mass and bilateral hilar and mediastinal lymphadenopathy. This is in the setting of an acute COVID infection. He is a never smoker was exposed to secondhand smoke from his father. Plan: Patient should be treated for acute COVID and after he was made a complete recovery (anticipated 1-3 weeks) will repeat CT scan to reassess mass and lymphadenopathy to determine the best approach for a biopsy (standard bronchoscopy or referral for a bronchoscopy with EBUS). If the patient is clinically ready to be discharged over the weekend, I have given him our business card and told him to call clinic on 10/10 to make an outpatient appointment in 2-3 weeks. Will follow with you. Inpatient Pulmonary consultative services will resume on 10/10/2023. Call with questions. 10/10/23: Patient tells me he has improved since admission. He denies shortness of breath at rest. Currently is on room air with saturations 98%. White blood cell count 9.2, creatinine 0.8. He has been tolerating his home noninvasive ventilator. Plan: Follow-up in the Pulmonary Clinic in 2-3 weeks. once the patient has recovered from his COVID illness will repeat CT scan to determine optimal biopsy procedure. I gave the Jena shunt our business card and informed our field insurance sales manager. Discussed with Dr. Mcelroy, will sign off, call with questions (2) ROSAURA (obstructive sleep apnea): Code(s): G47.33 - Obstructive sleep apnea (adult) (pediatric) Status: Acute Assessment and Plan: The patient tells me he was diagnosed with obstructive sleep apnea 15-20 years ago and he wears a CPAP 15 every night with a good clinical benefit. Plan: I have told the patient to have his family bring in his CPAP mask and machine. If he can bring in his CPAP mask and machine tonight he should wear her his own apparatus. Otherwise I will write for auto Pap 10 to 20. 10/10/23: He has been tolerating his home noninvasive ventilator. Plan: I will perform overnight oximetry on room air to assess his oxygen needs at night on his home CPAP of 15. (3) COVID: Code(s): U07.1 - COVID-19 Status: Acute Assessment and Plan: Patient tested COVID positive on 09/30 and repeat testing today in the emergency room is COVID positive. Room air saturations were listed as 91 in the emergency room and currently he is in no respiratory distress at rest on 2 L with saturations 100%. CT scan does not show diffuse ground-glass or focal infiltrates. He was started on remdesivir. Plan: Agree with remdesivir only for now. Would attempt to wean FiO2 to off with a goal saturation 90-94%. If patient's oxygen can be weaned off recommend discontinuation of remdesivir. If patient has worsening oxygen requirements would add dexamethasone 6 mg IV Qday. 10/10/23: Patient tells me he has improved since admission. He denies shortness of breath at rest. Currently is on room air with saturations 98%. White blood cell count 9.2, creatinine 0.8. Plan: Today is day 4 of remdesivir and would complete 5 days therapy and then discontinue. Subjective Date/time seen: 10/10/23 12:21 Interval history: 10/07/2023: This is a new pulmonary consult for right hilar mass.? 73-year-old with a history of hypertension, hyperlipidemia, depression, GERD, obstructive sleep apnea on CPAP 15 through IV respiratory care for 15-20 years. Patient was in his usual state of health and at baseline he can walk at least 3 blocks and then notice E has to breathe harder.? Over the last year his dyspnea on exertion has worsened from 1/4 mi to 3 blocks.? He has no weight loss over this time.? Patient has no chronic respiratory illnesses.? He denies asthma, COPD oral interstitial lung disease.? He is a never smoker.? He was exposed
--- NOTE | 2023-10-10 14:46 | PM.IMPN ---
Progress Note: A&P Assessment and Plan (1) New onset atrial fibrillation: Code(s): I48.91 - Unspecified atrial fibrillation Status: Acute (2) Hypotension: Code(s): I95.9 - Hypotension, unspecified Status: Acute (3) Mass of right lung: Code(s): R91.8 - Other nonspecific abnormal finding of lung field Status: Acute (4) Dehydration: Code(s): E86.0 - Dehydration Status: Acute (5) COVID: Code(s): U07.1 - COVID-19 Status: Acute (6) Hypertension: Code(s): I10 - Essential (primary) hypertension Status: Acute (7) Hyperlipidemia: Code(s): E78.5 - Hyperlipidemia, unspecified Status: Acute (8) Obstructive sleep apnea on CPAP: Code(s): G47.33 - Obstructive sleep apnea (adult) (pediatric) Status: Acute Plan 73-year-old male who presented with shortness of breath feeling ill since 10 days. One week ago he tested positive for COVID. Took pack Slo-bid without improvement. Feeling more weak. Went to ER in [place] no eye given Keflex for UTI. No chest pain was noted to be in atrial fibrillation today no prior history of AFib he present to the ER for further evaluation. Was mildly tachycardic with AFib rhythm blood pressure initially was 76/55 received IV fluid bolus and has been stabilized since then. Lactic acid was elevated 2.9 rest of the labs unremarkable troponin negative UA negative COVID positive CT was performed which ruled out PE but showed right hilar mass measuring 2.5 cm suspicious for bronchogenic carcinoma mediastinal and bilateral hilar lymphadenopathy consider bronchoscopy small pleural effusion with underlying compressive atelectasis noted was admitted for further treatment. Pulmonary was consulted in contemplating bronchoscopic evaluation await his further recommendation. For his atrial fibrillation and high chads Vasc score is been started on Lovenox 1 milligram/kilogram b.i.d. dosing. Echo 10/07/2023: EF 65-70% no significant valvular abnormality diastolic dysfunction. Repeat CT chest after recovery from COVID is planned to determine the best approach with biopsy marrow follow-up with Pulmonary regarding this. Since no plans for biopsy will start him on Xarelto and stop his Lovenox. Due to associated hypoxia with COVID positive been started on remdesivir. Oxygenation is fairly stable/improved. Will continue current plan for remdesivir History of ROSAURA continue CPAP at night Continue to taper off oxygen On metoprolol for AFib rhythm adjust does Subjective Date/time seen: 10/10/23 14:46 Interval history: 73-year-old male who presented with shortness of breath feeling ill since 10 days. One week ago he tested positive for COVID. Took pack Slo-bid without improvement. Feeling more weak. Went to ER in [place] no eye given Keflex for UTI. No chest pain was noted to be in atrial fibrillation today no prior history of AFib he present to the ER for further evaluation. Was mildly tachycardic with AFib rhythm blood pressure initially was 6-year-old 54 received IV fluid bolus and has been stabilized since then. Lactic acid was elevated 2.9 rest of the labs unremarkable troponin negative UA negative COVID positive CT was performed which ruled out PE but showed right hilar mass measuring 2.5 cm suspicious for bronchogenic carcinoma mediastinal and bilateral hilar lymphadenopathy consider bronchoscopy small pleural effusion with underlying compressive atelectasis noted was admitted for further treatment. Pulmonary was consulted in contemplating bronchoscopic evaluation await his further recommendation. For his atrial fibrillation and high chads Vasc score is been started on Lovenox 1 milligram/kilogram b.i.d. dosing. Echo 10/07/2023: EF 65-70% no significant valvular abnormality diastolic dysfunction. Repeat CT chest after recovery from COVID is planned to determine the best approach with biopsy marrow follow-up with Pulmonary regardin
[2023-10-10] MEDS: RIVAROXABAN 20 MG TABLET PO (16:56)
[2023-10-10] MEDS: REMDESIVIR 100 MG/NS 250 ML 100 MG/250 ML BAG 250 MG IVPB (21:15)
[2023-10-11] VITALS (12 sets, daily range): BP systolic 112–122; BP diastolic 53–63; PULSE 72–106; RESP 18–20; TEMP 36.3–36.6; O2SAT 94–98
[2023-10-11 06:14] LABS: INR 1.5; Prothrombin Time 19.1 Seconds (11.1-14.7)
[2023-10-11 06:15] LABS: Alanine Aminotransferase 41 U/L (6-50); Albumin Level 3.7 g/dL (3.5-5.1); Alkaline Phosphatase 55 U/L (38-126); Aspartate Amino Transferase 34 U/L (17-59); Bilirubin,Total 0.5 mg/dL (0.2-1.3)
[2023-10-11] MEDS: ROSUVASTATIN 5 MG TABLET PO (08:05)
[2023-10-11] MEDS: DULoxetine HCL 60 MG CAPSULE.DR PO (08:06)
[2023-10-11] MEDS: PANTOPRAZOLE 40 MG TABLET PO (08:06)
[2023-10-11] MEDS: CELECOXIB 200 MG CAPSULE PO (08:06)
[2023-10-11] MEDS: METOPROLOL TARTRATE 12.5 MG TABLET PO (08:06)
[2023-10-11] MEDS: guaiFENesin 600 MG/DEXTROMETHORPHAN 30 MG SR TAB 12 HR 1 TAB PO (08:06)
--- NOTE | 2023-10-11 08:49 | PM.PNPUL ---
Progress Note: A&P Assessment and Plan (1) Mass of right lung: Code(s): R91.8 - Other nonspecific abnormal finding of lung field Status: Acute Assessment and Plan: Patient with the 2.5 cm right hilar mass and bilateral hilar and mediastinal lymphadenopathy. This is in the setting of an acute COVID infection. He is a never smoker was exposed to secondhand smoke from his father. Plan: Patient should be treated for acute COVID and after he was made a complete recovery (anticipated 1-3 weeks) will repeat CT scan to reassess mass and lymphadenopathy to determine the best approach for a biopsy (standard bronchoscopy or referral for a bronchoscopy with EBUS). If the patient is clinically ready to be discharged over the weekend, I have given him our business card and told him to call clinic on 10/10 to make an outpatient appointment in 2-3 weeks. Will follow with you. Inpatient Pulmonary consultative services will resume on 10/10/2023. Call with questions. 10/10/23: Patient tells me he has improved since admission. He denies shortness of breath at rest. Currently is on room air with saturations 98%. White blood cell count 9.2, creatinine 0.8. He has been tolerating his home noninvasive ventilator. 10/11/23: Patient tells me he is breathing back at his baseline. Has no shortness of breath at rest. He is afebrile. Room air saturations 96%. Plan: Home O2 assessment. Follow-up in the Pulmonary Clinic in 2-3 weeks. Once the patient has recovered from his COVID illness will repeat CT scan to determine optimal biopsy procedure. I gave him our business card and informed our manager audio. Discussed with Dr. Mcelroy, will sign off, call with questions (2) ROSAURA (obstructive sleep apnea): Code(s): G47.33 - Obstructive sleep apnea (adult) (pediatric) Status: Acute Assessment and Plan: The patient tells me he was diagnosed with obstructive sleep apnea 15-20 years ago and he wears a CPAP 15 every night with a good clinical benefit. Plan: I have told the patient to have his family bring in his CPAP mask and machine. If he can bring in his CPAP mask and machine tonight he should wear her his own apparatus. Otherwise I will write for auto Pap 10 to 20. 10/10/23: He has been tolerating his home noninvasive ventilator. Plan: I will perform overnight oximetry on room air to assess his oxygen needs at night on his home CPAP of 15. 10/11: Tolerating his home machine. Patient had an overnight oximetry on his home CPAP with room air. Recording duration 7 hours and 27 minutes, average saturation 93%, low saturation 87%, time with saturation less than or equal to 88% was 2 minutes, oxygen desaturation index 19.4. Plan: Continue home CPAP on room air. (3) COVID: Code(s): U07.1 - COVID-19 Status: Acute Assessment and Plan: Patient tested COVID positive on 09/30 and repeat testing today in the emergency room is COVID positive. Room air saturations were listed as 91 in the emergency room and currently he is in no respiratory distress at rest on 2 L with saturations 100%. CT scan does not show diffuse ground-glass or focal infiltrates. He was started on remdesivir. Plan: Agree with remdesivir only for now. Would attempt to wean FiO2 to off with a goal saturation 90-94%. If patient's oxygen can be weaned off recommend discontinuation of remdesivir. If patient has worsening oxygen requirements would add dexamethasone 6 mg IV Qday. 10/10/23: Patient tells me he has improved since admission. He denies shortness of breath at rest. Currently is on room air with saturations 98%. White blood cell count 9.2, creatinine 0.8. Plan: Today is day 4 of remdesivir and would complete 5 days therapy and then discontinue. 10/11/23: Patient tells me he has improved back to his baseline. Remains on room air. Plan: Today is day 5 of remdesivir, plan to be discharged later today. Subjective Date/time seen:
--- NOTE | 2023-10-11 11:51 | PCRCNOTE ---
Home o2 eval done, no home O2 needed at this time.
--- NOTE | 2023-10-11 13:06 | PM.DS ---
DS: Admitting Diagnosis Discharge Date 10/11/2023 Admitting Diagnosis Shortness of breath DS: Discharge Diagnosis Discharge Diagnosis (1) New onset atrial fibrillation: Code(s): I48.91 - Unspecified atrial fibrillation Status: Acute (2) Hypotension: Code(s): I95.9 - Hypotension, unspecified Status: Acute (3) Mass of right lung: Code(s): R91.8 - Other nonspecific abnormal finding of lung field Status: Acute (4) Dehydration: Code(s): E86.0 - Dehydration Status: Acute (5) COVID: Code(s): U07.1 - COVID-19 Status: Acute (6) Hypertension: Code(s): I10 - Essential (primary) hypertension Status: Acute (7) Hyperlipidemia: Code(s): E78.5 - Hyperlipidemia, unspecified Status: Acute (8) Obstructive sleep apnea on CPAP: Code(s): G47.33 - Obstructive sleep apnea (adult) (pediatric) Status: Acute DS: Summary Hospital Course Hospital Course: 73-year-old male who presented with shortness of breath feeling ill since 10 days.? One week ago he tested positive for COVID.? Took paxlovid without improvement.? Feeling more weak.? Went to ER in [place] no eye given Keflex for UTI.? No chest pain was noted to be in atrial fibrillation today no prior history of AFib he present to the ER for further evaluation.? Was mildly tachycardic with AFib rhythm blood pressure initially was 76/55 received IV fluid bolus and has been stabilized since then.? Lactic acid was elevated 2.9 rest of the labs unremarkable troponin negative UA negative COVID positive CT was performed which ruled out PE but showed right hilar mass measuring 2.5 cm suspicious for bronchogenic carcinoma mediastinal and bilateral hilar lymphadenopathy consider bronchoscopy small pleural effusion with underlying compressive atelectasis noted was admitted for further treatment.? Pulmonary was consulted in contemplating bronchoscopic evaluation. This would be done as an outpatient basis after recovery from his COVID infection. He has also plan to get a repeat CT chest as an outpatient basis. For his atrial fibrillation and high chads Vasc score is been started on Lovenox 1 milligram/kilogram b.i.d. dosing.? Echo 10/07/2023: EF 65-70% no significant valvular abnormality diastolic dysfunction.? Since no plans for biopsy started on Xarelto and stop his Lovenox.?Due to associated hypoxia with COVID positive been started on remdesivir and completed 5 days course. Oxygenation improved. History of ROSAURA continue CPAP at night overnight test revealed no need for oxygen at night. Home oxygen evaluation was done and no oxygen worker's needed at rest or activity On metoprolol for AFib rhythm adjust does and will be discharged on so. Rest of the blood pressure medication that he normally takes at prior to admission were held due to low blood pressure on admission and also the blood pressure remained normal throughout the hospital course Time Spent with Patient Time attestation: Total time spent providing and/or coordinating discharge services: 35 minutes Exam Narrative: General: Well-appearing gentleman sitting up in bed in no acute distress. HEENT: Normocephalic, atraumatic. PERRL, EOMI. Sclera anicteric. Conjunctiva mildly injected. Tacky mucous membranes. Neck: Supple. No JVD. Respiratory: Currently on 2 L nasal cannula. He does not appear and respiratory distress and speaking in full sentences. Lungs are clear to auscultation. Occasional cough. Cardiovascular: Rate controlled aFib rhythm with S1-S2. Gastrointestinal: Abdomen is soft, nontender, and nondistended with positive bowel sounds. Skin: Warm and dry. No rash or lesions on limited exam. Extremities: No cyanosis, clubbing, or edema. Radial and pedal pulses intact. No palpable knots or cords. Neurological: Alert. Cranial nerves 2-12 are grossly intact. No gross focal deficits to casual conversation. Psychiatric: Pleasant and cooperative wi
[2023-10-11] MEDS: REMDESIVIR 100 MG/NS 250 ML 100 MG/250 ML BAG 250 MG IVPB (15:47)
[2023-10-11] MEDS: RIVAROXABAN 20 MG TABLET PO (16:58)
== END 2023-10-11 18:10 | disposition home or self-care (01) | DRG 179 ==
LOC: ANHED 10:49 → ANHIMU 15:07 → ANH3MED 10-08 16:20 → ANHIMU 10-08 16:21 → ANH2MED 10-08 17:52
PROVIDERS: Physician Assistant; Admitting Provider Internal Medicine; Emergency Provider Emergency Medicine; PCP Family Medicine Sports Medicine; Visit Provider Internal Medicine
DX: U07.1 COVID-19 (principal); I48.91 Unspecified atrial fibrillation; R91.8 Other nonspecific abnormal finding of lung field; I95.9 Hypotension, unspecified; R09.02 Hypoxemia; E86.0 Dehydration; I10 Essential (primary) hypertension; E78.5 Hyperlipidemia, unspecified; K21.9 Gastro-esophageal reflux disease without esophagitis; G47.33 Obstructive sleep apnea (adult) (pediatric); E66.9 Obesity, unspecified; Z68.35 Body mass index [BMI] 35.0-35.9, adult; Z85.46 Personal history of malignant neoplasm of prostate; Z90.49 Acquired absence of other specified parts of digestive tract
CPT/HCPCS: 36415; 71045; 71275; 80048; 80053; 80076; 81003; 82728; 83605; 83615; 83735; 84443; 84484; 85025; 85027; 85610; 85730; 86140; 87040; 87637; 93005; 93306; 94618; 96361; 96372; 96375; 99285; A9270; G0378; J0248; J1650; J7030; Q9967

== ENCOUNTER 2023-11-21 10:03 | Outpatient (CLI) | payer MEDICARE, OTHER, SELFPAY ==
--- NOTE | ~2023-11-21 | CT_ITS ---
Clinical Indication: Lung mass, lymphadenopathy CT Scan of the Chest with Contrast: Technique: Contiguous sections were acquired throughout the chest after intravenous administration of 75 cc of Omnipaque 350. Dose reduction technique was used on this scan by utilizing automated exposu re control and iterative reconstruction technique. The dose-length product (DLP) was 770.92 mGy-cm. COMPARISON: 10/07/2023 Findings: Right hilar mass is decreased in size, now measuring 1.5 cm in diameter. There is no filling defect i n the pulmonary arterial tree to suggest pulmonary embolus. There is no evidence of aortic dissection or aneurysm. There is no evidence of pleural or pericardial effusion. The lungs are clear. No pulmonary nodules or infiltrates are noted. Images through the upper abdomen reveal no abnormalities. Impression: Right hilar mass/lymph node is decreased in size, now measuring 1.5 cm in diameter. Correlate with an y relevant treatment history. Reviewed, dictated and finalized at [facility]. Impression: Right hilar mass/lymph node is decreased in size, now measuring 1.[address] Correlate with any relevant treatment history.
[2023-11-21 10:29] LABS: Estimated Glomerular Filt Rate > 60
== END 2023-11-21 10:04 | disposition home or self-care (01) ==
LOC: ANHIMG 10:04
PROVIDERS: PCP Family Medicine Sports Medicine; Visit Provider Internal Medicine Pulmonary Disease
DX: R91.8 Other nonspecific abnormal finding of lung field (principal)
CPT/HCPCS: 71260; Q9967